=== PATIENT | female | born 1985 | race Caucasian/White ===

== ENCOUNTER 2019-10-15 17:43 | Emergency (ER) | payer OTHER, SELFPAY ==
--- NOTE | 2019-10-15 18:05 | ED.GENADULT ---
HPI - General Adult General Chief complaint: Upper Respiratory Infection Stated complaint: Sore Throat Time Seen by Provider: 10/15/19 18:05 Source: patient Mode of arrival: ambulatory Limitations: no limitations History of Present Illness HPI narrative: 34-year-old female patient presents to the [facility] with complaints of cold symptoms for the past 2 days. Patient states that she does have a history of asthma and recently quit smoking about 4 weeks ago. Patient denies any fevers. Patient states that she has had a cough with a sore throat. Patient states that the sore throat is worse when she wakes up in the morning. Denies using a humidifier. Patient states she did take some Tylenol for her symptoms a couple of days ago but pretty much is just been using her albuterol inhaler. Patient denies getting an influenza shot this year. Patient denies or breast-feeding at this time. Related Data Home Medications Medication Instructions Recorded Confirmed albuterol sulfate 1 inh INHALATION QID PRN 10/15/19 10/15/19 albuterol sulfate 2.5 mg INHALATION Q4H PRN 10/15/19 10/15/19 montelukast [Singulair] 10 mg PO DAILY 10/15/19 10/15/19 Allergies Allergy/AdvReac Type Severity Reaction Status Date / Time mold Allergy Unknown Dyspnea / Verified 05/22/19 17:00 SOB No Known Drug Allergies Allergy Unknown Verified 11/01/18 16:16 Grass Allergy Unknown Dyspnea / Uncoded 05/22/19 17:00 SOB [place] Allergy Unknown Dyspnea / Uncoded 05/22/19 17:00 SOB Review of Systems Review of Systems: Narrative: CONSTITUTIONAL: Denies fever, chills, or sweats. EYES: Denies visual changes, redness, or discharge. ENT: Positive rhinorrhea, congestion, sore throat, denies otalgia. CARDIOVASCULAR: Denies chest pain, palpitations, or edema. RESPIRATORY: Positive cough with dyspnea. GASTROINTESTINAL: Denies abdominal pain, nausea, vomiting, or diarrhea. GENITOURINARY: Denies dysuria or hematuria. SKIN: Denies rash or itching. MUSCULOSKELETAL: Denies back pain, joint pain, or myalgia. NEUROLOGIC: Denies headache, numbness, or weakness. PSYCHIATRIC: Denies anxiety or depression. [facility] Social History Social History (Reviewed 10/15/19 @ 18:05 by VANESSA Reyes Smoking status: Former smoker Second hand tobacco smoke exposure: No Smoking end date: 08/21/16 Alcohol intake: never Comments At the time of my signature I agree with nursing past medical history, surgical, social, and family history. There is no relevant family history pertinent to the presenting complaint. Exam Narrative: Exam Narrative: GENERAL: Well-appearing, well-nourished, and in no acute distress. HEAD: Normocephalic, atraumatic. EYES: PERRLA and EOMI. ENT: Nares with erythema and edema noted bilaterally, no rhinorrhea or epistaxis. Mucous membranes moist. Posterior pharynx with no erythema, tonsillar margin, exudates or lesions present. There is some postnasal drip noted to the posterior pharynx. Bilateral TMs are clear with no erythema or foreign bodies in the canal. NECK: Supple. No lymphadenopathy CHEST: Patient has slight decreased lung sounds noted to the right lower lobe. No wheezing noted.. No respiratory distress. HEART: Regular rate and rhythm. No murmur heard. Normal peripheral pulses. ABDOMEN: Soft, nontender, nondistended, normal active bowel sounds. EXTREMITIES: Normal range of motion. No edema. SKIN: Warm, dry, no rash. NEURO: No focal deficits. Alert and oriented x3. Course Vital Signs Vital signs: Vital Signs Temperature 36.7 C 10/15/19 18:16 Pulse Rate 83 10/15/19 18:16 Respiratory Rate 16 10/15/19 18:16 Blood Pressure 116/80 10/15/19 18:16 Pulse Oximetry 99 10/15/19 18:16 Temperature 36.7 C 10/15/19 18:16 Pulse Rate 83 10/15/19 18:16 Respiratory Rate 16 10/15/19 18:16 Blood Pressure 116/80 10/15/19 18:16 Pulse Oximetry 99 10/15/19 18:16 Vital signs reviewed. Medical Decision
[2019-10-15 18:16] VITALS: BP 116/80; PULSE 83; RESP 16; TEMP 36.7; O2SAT 99
== END 2019-10-15 18:41 | disposition home or self-care (01) ==
PROVIDERS: Emergency Provider Nurse Practitioner Family; PCP Internal Medicine
DX: J06.9 Acute upper respiratory infection, unspecified (principal); J45.909 Unspecified asthma, uncomplicated; Z87.891 Personal history of nicotine dependence
CPT/HCPCS: 99213; G0463